=== PATIENT | female | born 1965 | race Caucasian/White ===

== ENCOUNTER 2017-12-10 14:43 | Emergency (ER) | END 2017-12-10 17:32 | disposition home or self-care (01) ==

== ENCOUNTER → 2018-12-31 | Outpatient (CLI) | payer BC ==
[~2018-12-31] MED LIST: IBUP-1542 PO; MED4DP PO
== END | disposition home or self-care (01) ==
LOC: U/S 13:55
PROVIDERS: ATTEND Obstetrics & Gynecology
DX: N95.0 Postmenopausal bleeding (principal)
CPT/HCPCS: 76830; 76856